=== PATIENT | male | born 1990 | race African-American/Black ===

== ENCOUNTER 2019-11-17 18:16 | Emergency (ER) | payer SELFPAY ==
--- OUTSIDE RECORDS SUMMARY | 2019-11-17 18:17 | XMS REPORT ---
:1990 Author Organization [facility] t Address [address] [place] [address] Care Team Providers Name Role Phone DR BRANDO Attending Clinician Unavailable DR DESEAN Attending Clinician Unavailable DR BRANDO Admitting Clinician Unavailable DESEAN, Admitting Clinician Unavailable Problems This patient has no known problems. Allergies, Adverse Reactions, Alerts This patient has no known allergies or adverse reactions. Medications This patient has no known medications. Procedures This patient has no known procedures. Encounters Start End Encounter Admission Attending Care Care Encounter Source Date/Time Date/Time Type Type Clinicians Facility Department ID 2019-08-04 2019-08-04 Emergency E BRANDO [facility] [id number] 22:01:00 23:42:00 [facility] 2019-08-01 2019-08-01 Emergency E MICHAELS, [facility] [id number] 21:00:00 21:43:00 [facility] 2018-10-23 2018-10-23 Emergency E DESEANDAYA [facility] [id number] [address] 14:39:00 15:28:00 [facility] Results Test Description Test Time Test Comments Results Result [facility] e Comments CT HEAD W/O 2018-10-23 CT brain without CONTRAST 15:22:04 contrast.Location code: [id number] HISTORY: Left Facial Palsy COMPARISON: None.TECHNIQUE: Routine unenhanced axial imaging of the brain was performed. Oneor more of the following dose reduction techniques were used: Automatedexposure control, adjustment of the mA and or KV according to patient size,and/or utilization of iterative reconstruction technique. DLP: 800 mGy-cm. FINDINGS: There is no acute intracranial hemorrhage or extra-axial collection.There is no hydrocephalus, midline shift, or space occupying mass. Coto-whitematter differentiation is well preserved with no definite CT evidence of anacute infarct. Posterior fossa and CP angles are normal.The cranial vault and skull base are intact. The paranasal sinuses and mastoidair cells are pneumatized and well aerated. IMPRESSION: No acute intracranial abnormality.
--- NOTE | 2019-11-17 19:48 | ER ---
Nurse's Notes [facility] Name: Romeo Lam Age: 29 yrs Sex: Male : 1990 Arrival Date: 11/17/2019 Time: 18:18 Bed 11 Private MD: Diagnosis: Pain in left hand-thumb Presentation: 11/16 18:32 Chief complaint: Patient states: "I hurt my left thumb with a metal pipe at work". pt aa5 c/o pain to left thumb. Coronavirus screen: Proceed with normal triage. Patient denies a cough. Patient denies shortness of breath or difficulty breathing. Patient denies measured and/or subjective temperature greater than 100.4F prior to today's visit. Patient denies travel on a cruise ship or to a country the [facility] currently lists as an affected area. Patient denies contact with known and/or suspected case of COVID-19. Ebola Screen: Patient negative for fever greater than or equal to 101.5 degrees Fahrenheit, and additional compatible Ebola Virus Disease symptoms. Initial Sepsis Screen: Does the patient meet any 2 criteria? No. Patient's initial sepsis screen is negative. Does the patient have a suspected source of infection? No. Patient's initial sepsis screen is negative. Risk Assessment: Do you want to hurt yourself or someone else? Patient reports no desire to harm self or others. Onset of symptoms was November 17, 2019. 18:32 Acuity: JOSE 4 aa5 18:32 Method Of Arrival: Ambulatory aa5 Triage Assessment: 19:15 General: Appears comfortable, Behavior is calm, cooperative. Injury Description: jammed rv finger between metal bars. Historical: - Allergies: 18:34 No Known Allergies; aa5 - PMHx: 18:34 None; aa5 - PSHx: 18:34 None; aa5 - Immunization history:: Adult Immunizations unknown. - Social history:: Smoking status: Patient reports the use of cigarette tobacco products, denies chronic smoking, but will smoke occasionally. Screenin:15 Abuse screen: Denies threats or abuse. Denies injuries from another. Nutritional rv screening: No deficits noted. Tuberculosis screening: No symptoms or risk factors identified. Fall Risk None identified. Assessment: 19:14 General: Appears in no apparent distress. comfortable, Behavior is calm, cooperative. rv Pain: Denies pain. Neuro: Level of Consciousness is awake, alert, obeys commands, Oriented to person, place, time, situation. Cardiovascular: Patient's skin is warm and dry. Respiratory: Airway is patent. Derm: Skin is intact. Musculoskeletal: Swelling absent. 19:54 Reassessment: Patient and/or family updated on plan of care and expected duration. Pain ea level reassessed. Patient is alert, oriented x 3, equal unlabored respirations, skin warm/dry/pink. Discharge instruction given to patient, verbalized the understanding of instruction. Pt left ED ambulatory tolerating well. Patient states feeling better. Vital Signs: 18:32 BP 131 / 82; Pulse 85; Resp 16 S; Temp 98.3(TE); Pulse Ox 100% on R/A; Weight 68.04 kg aa5 (R); Height 5 ft. 8 in. (172.72 cm) (R); Pain 1/10; 18:32 Body Mass Index 22.81 (68.04 kg, 172.72 cm) aa5 ED Course: 18:18 Patient arrived in ED. as 18:32 Arm band placed on. aa5 18:33 Triage completed. aa5 18:36 [facility]C [facility] kb 18:36 Markus Ibarra MD is Attending Physician. kb 19:01 Dean Pena, CELINA is Primary Nurse. rv 19:16 Patient has correct armband on for positive identification. Pulse ox on. NIBP on. rv 19:45 Hand Left 3 View XRAY In Process Unspecified. EDMS 19:55 No provider procedures requiring assistance completed. Patient did not have IV access ea during this emergency room visit. Administered Medications: No medications were administered Outcome: 19:47 Discharge ordered by MD. kb 19:55 Discharged to home ambulatory. ea 19:55 Condition: stable 19:55 Instructed on discharge instructions, follow up and referral plans. Demonstrated understanding of instructions, follow-up care. 19:56 Patient left the ED. ea Signatures: Dispatcher [employer] EDMS Eula Posada FNP-C FNP-Amada De Los Santos Audri, RN RN aa5 Lara Vargas RN RN ea Dean Pena, CELINA RN rv Corrections: (The following items were deleted from the chart) 19:16 19:15 Injury Description: jam finger between metal bars rv rv 19:55 19:54 Reassessment: Patient and/or family updated on plan of care and expected ea duration. Pain level reassessed. Patient is alert, oriented x 3, equal unlabored respirations, skin warm/dry/pink. Patient states feeling better. ea
--- NOTE | 2019-11-17 19:49 | EDPHYS ---
Physician Documentation [facility] Name: Romeo Lam Age: 29 yrs Sex: Male : 1990 Arrival Date: 11/17/2019 Time: 18:18 Bed 11 Private MD: ED Physician Markus Ibarra HPI: 11/16 19:22 This 29 yrs old Black Male presents to ER via Ambulatory with complaints of Thumb kb Injury. 19:22 The patient or guardian reports decreased range of motion, injury, pain, tenderness. kb The complaints affect the left thumb. Context: The problem was sustained at work, resulted from a direct blow. Onset: The symptoms/episode began/occurred today. Modifying factors: The symptoms are alleviated by nothing, the symptoms are aggravated by movement. Associated signs and symptoms: The patient has no apparent associated signs or symptoms. Severity of symptoms: At their worst the symptoms were mild, in the emergency department the symptoms are unchanged. The patient has not experienced similar symptoms in the past. The patient has not recently seen a physician. Pt states a piece of metal hit his thumb today and he just wanted to make sure it wasn't broken. Historical: - Allergies: 18:34 No Known Allergies; aa5 - PMHx: 18:34 None; aa5 - PSHx: 18:34 None; aa5 - Immunization history:: Adult Immunizations unknown. - Social history:: Smoking status: Patient reports the use of cigarette tobacco products, denies chronic smoking, but will smoke occasionally. ROS: 19:20 Constitutional: Negative for fever, chills, and weight loss, Neck: Negative for injury, kb pain, and swelling, Cardiovascular: Negative for chest pain, palpitations, and edema, Respiratory: Negative for shortness of breath, cough, wheezing, and pleuritic chest pain, Abdomen/GI: Negative for abdominal pain, nausea, vomiting, diarrhea, and constipation, Back: Negative for injury and pain, Skin: Negative for injury, rash, and discoloration, Neuro: Negative for headache, weakness, numbness, tingling, and seizure. 19:20 MS/extremity: Positive for injury or acute deformity, decreased range of motion, pain, of the left thumb. Exam: 19:20 Constitutional: This is a well developed, well nourished patient who is awake, alert, kb and in no acute distress. Head/Face: Normocephalic, atraumatic. Chest/axilla: Normal chest wall appearance and motion. Nontender with no deformity. No lesions are appreciated. Cardiovascular: Regular rate and rhythm with a normal S1 and S2. No gallops, murmurs, or rubs. Normal PMI, no JVD. No pulse deficits. Respiratory: Lungs have equal breath sounds bilaterally, clear to auscultation and percussion. No rales, rhonchi or wheezes noted. No increased work of breathing, no retractions or nasal flaring. Abdomen/GI: Soft, non-tender, with normal bowel sounds. No distension or tympany. No guarding or rebound. No evidence of tenderness throughout. Skin: Warm, dry with normal turgor. Normal color with no rashes, no lesions, and no evidence of cellulitis. Neuro: Awake and alert, GCS 15, oriented to person, place, time, and situation. Cranial nerves II-XII grossly intact. Motor strength 5/5 in all extremities. Sensory grossly intact. Cerebellar exam normal. Normal gait. 19:20 Musculoskeletal/extremity: Extremities: grossly normal except: noted in the left thumb: decreased ROM, pain, swelling, ROM: limited active range of motion due to pain, in the left thumb, Circulation is intact in all extremities. Sensation intact. Vital Signs: 18:32 BP 131 / 82; Pulse 85; Resp 16 S; Temp 98.3(TE); Pulse Ox 100% on R/A; Weight 68.04 kg aa5 (R); Height 5 ft. 8 in. (172.72 cm) (R); Pain 1/10; 18:32 Body Mass Index 22.81 (68.04 kg, 172.72 cm) aa5 MDM: 19:01 Patient medically screened. kb 19:20 Data reviewed: vital signs, nurses notes. Data interpreted: Pulse oximetry: on room air kb is 100 %. Interpretation: normal. Counseling: I had a detailed discussion with the patient and/or guardian regarding: the historical points, exam findings, and any diagnostic results supporting the discharge/admit diagnosis, radiology results, the need for outpatient follow up, a family practitioner, to return to the emergency department if symptoms worsen or persist or if there are any questions or concerns that arise at home. 11/16 18:35 Order name: Hand Left 3 View XRAY aa5 Administered Medications: No medications were administered Disposition: 11/17 07:19 Co-signature as Attending Physician, Markus Ibarra MD. rn Disposition: 11/17/19 19:47 Discharged to Home. Impression: Pain in left hand - thumb. - Condition is Stable. - Discharge Instructions: Musculoskeletal Pain. - Medication Reconciliation Form, Thank You Letter, Antibiotic Education, Prescription Opioid Use form. - Follow up: Emergency Department; When: As needed; Reason: Worsening of condition. Follow up: Private Physician; When: 2 - 3 days; Reason: Recheck today's complaints, Continuance of care, Re-evaluation by your physician. Signatures: Dispatcher [employer] EDMS Eula Posada, WATER COMMISSIONER-C WATER COMMISSIONER-Ckb Markus Ibarra MD MD rn Calderon, Audri, RN RN aa5 Lara Vargas RN RN ea Corrections: (The following items were deleted from the chart) 11/16 19:56 19:47 11/17/2019 19:47 Discharged to Home. Impression: Pain in left hand - thumb. ea Condition is Stable. Forms are Medication Reconciliation Form, Thank You Letter, Antibiotic Education, Prescription Opioid Use. Follow up: Emergency Department; When: As needed; Reason: Worsening of condition. Follow up: Private Physician; When: 2 - 3 days; Reason: Recheck today's complaints, Continuance of care, Re-evaluation by your physician. kb
--- NOTE | 2019-11-17 20:06 | RAD REPORT ---
EXAM DESCRIPTION: RAD -Hand Left 3 View - 11/17/2019 7:40 pm CLINICAL HISTORY: Left hand pain status post injury FINDINGS: No fracture or dislocation is seen.
== END 2019-11-17 19:56 | disposition home or self-care (01) ==
LOC: ER 18:16
DX: M79.642 Pain in left hand (principal); Z72.0 Tobacco use
CPT/HCPCS: 99283

== ENCOUNTER 2021-09-01 07:11 | Emergency (ER) | payer SELFPAY ==
--- OUTSIDE RECORDS SUMMARY | 2021-09-01 07:14 | XMS REPORT | Continuity of Care Document ---
:1990 Author Organization [facility] t Address [address] [place] [address] Care Team Providers Name Role Phone DR BRANDO Attending Clinician Unavailable DR DESEAN Attending Clinician Unavailable DR BRANDO Admitting Clinician Unavailable DESEAN, Admitting Clinician Unavailable Problems This patient has no known problems. Allergies, Adverse Reactions, Alerts Allergy Allergy Status Severity Reaction(s) Onset Inactive Treating Comm ents Source Name Type Date Date Clinician No Known DA Active [facility] Allergie [place] s Medications This patient has no known medications. Vital Signs Vital Name Observation Time Observation Value Comments Source Height 2019-08-04 22:01:00 172.72 CM Weight 2019-08-04 22:01:00 68.03 KG Height 2019-08-01 21:18:00 172.72 CM Weight 2019-08-01 21:18:00 68.03 KG Procedures This patient has no known procedures. Encounters Start End Encounter Admission Attending Care Care Encounter Source Date/Time Date/Time Type Type Clinicians Facility Department ID 2019-08-04 2019-08-04 Emergency E BRANDO [facility] [id number] 22:01:00 23:42:00 [facility] 2019-08-01 2019-08-01 Emergency E BRANDO [facility] [id number] 21:00:00 21:43:00 [facility] 2018-10-23 2018-10-23 Emergency E DAYA [facility] [id number] [address] 14:39:00 15:28:00 [facility] Results Test Description Test Time Test Comments Results Result [facility] e Comments CT HEAD W/O 2018-10-23 CT brain without CONTRAST 15:22:04 contrast.Location code: [id number] HISTORY: Left Facial Palsy COMPARISON: None.TECHNIQUE: Routine [...]
--- NOTE | 2021-09-01 08:16 | ER ---
Nurse's Notes [facility] Name: Romeo Lam Age: 31 yrs Sex: Male : 1990 Arrival Date: 09/01/2021 Time: 07:14 Bed 8 Private MD: Diagnosis: Pain in left forearm Presentation: 09/01 07:37 Chief complaint: Patient states: L elbow pain started night. Radiating down L ll1 arm now. No trauma, just repetitive use at work. Coronavirus screen: Vaccine status: Patient reports receiving the 2nd dose of the covid vaccine. Client denies travel out of the [place] in the last 14 days. At this time, the client does not indicate any symptoms associated with coronavirus-19. Ebola Screen: Patient denies travel to an Ebola-affected area in the 21 days before illness onset. Initial Sepsis Screen: Does the patient meet any 2 criteria? No. Patient's initial sepsis screen is negative. Does the patient have a suspected source of infection? No. Patient's initial sepsis screen is negative. Risk Assessment: Do you want to hurt yourself or someone else? Patient reports no desire to harm self or others. Onset of symptoms was August 26, 2021. 07:37 Method Of Arrival: Ambulatory ll1 07:37 Acuity: JOSE 4 ll1 Triage Assessment: 07:39 General: Appears uncomfortable, Behavior is calm, cooperative, appropriate for age. ll1 Pain: Complains of pain in left arm Quality of pain is described as aching, Aggravated by increased activity. Musculoskeletal: Circulation, motion, and sensation intact. Capillary refill < 3 seconds, Range of motion: intact in all extremities, Reports pain in left arm. Historical: - Allergies: 07:36 No Known Allergies; ll1 - PMHx: 07:36 None; ll1 - PSHx: 07:36 None; ll1 - Immunization history:: Client reports receiving the 2nd dose of the Covid vaccine. - Social history:: Smoking status: Patient reports the use of cigarette tobacco products, denies chronic smoking, but will smoke occasionally. - Family history:: not pertinent. Screenin:39 Abuse screen: Denies threats or abuse. Nutritional screening: No deficits noted. ll1 Tuberculosis screening: No symptoms or risk factors identified. Fall Risk Total Lino Fall Scale indicates No Risk (0-24 pts). Assessment: 08:25 Reassessment: Patient appears in no apparent distress at this time. No changes from 1 previously documented assessment. Patient and/or family updated on plan of care and expected duration. Pain level reassessed. Patient is alert, oriented x 3, equal unlabored respirations, skin warm/dry/pink. Vital Signs: 07:37 BP 127 / 93; Pulse 60; Resp 16; Temp 98.0; Pulse Ox 100% ; Weight 70.31 kg; Height 5 ll1 ft. 9 in. (175.26 cm); Pain 2/10; 07:37 Body Mass Index 22.89 (70.31 kg, 175.26 cm) 1 ED Course: 07:14 Patient arrived in ED. ds1 07:19 Rachael Lara MD is Attending Physician. ma2 07:35 French Kent, CELINA is Primary Nurse. ll1 07:35 Arm band placed on Patient placed in an exam room, on a stretcher. 1 07:39 Triage completed. 1 07:39 Patient has correct armband on for positive identification. Bed in low position. Call 1 light in reach. Side rails up X 1. Cardiac monitoring not applicable on this patient. 08:28 No provider procedures requiring assistance completed. Patient did not have IV access ll1 during this emergency room visit. Administered Medications: No medications were administered Outcome: 08:15 Discharge ordered by . [facility] 08:28 Patient left the ED. 1 08:28 Discharged to home ambulatory. 1 08:28 Condition: stable 08:28 Discharge instructions given to patient, Instructed on discharge instructions, follow up and referral plans. no drinking with medication, no driving heavy equipment, medication usage, Demonstrated understanding of instructions, follow-up care, medications, Prescriptions given X 1. Signatures: Rosemary Ponce ds1 Rachael Lara MD MD ma2 Lewis, Lynsay, RN RN 1
--- NOTE | 2021-09-01 08:16 | EDPHYS ---
Physician Documentation [facility] Name: Romeo Lam Age: 31 yrs Sex: Male : 1990 Arrival Date: 09/01/2021 Time: 07:14 Bed 8 Private MD: ED Physician Rachael Lara HPI: 09/01 08:14 This 31 yrs old Black Male presents to ER via Ambulatory with complaints of Arm Pain. ma2 08:14 Left forearm pain 1 day constant mild worse with movement, started gradually after he ma2 lifted heavy stuff.. Historical: - Allergies: 07:36 No Known Allergies; ll1 - PMHx: 07:36 None; ll1 - PSHx: 07:36 None; ll1 - Immunization history:: Client reports receiving the 2nd dose of the Covid vaccine. - Social history:: Smoking status: Patient reports the use of cigarette tobacco products, denies chronic smoking, but will smoke occasionally. - Family history:: not pertinent. ROS: 08:14 Constitutional: Negative for fever, chills, and weight loss. ma2 08:14 All other systems are negative. Exam: 08:14 Constitutional: This is a well developed, well nourished patient who is awake, alert, ma2 and in no acute distress. Neck: Trachea midline, no thyromegaly or masses palpated, and no cervical lymphadenopathy. Supple, full range of motion without nuchal rigidity, or vertebral point tenderness. No Meningismus. Chest/axilla: Normal chest wall appearance and motion. Nontender with no deformity. No lesions are appreciated. Cardiovascular: Regular rate and rhythm with a normal S1 and S2. No gallops, murmurs, or rubs. Normal PMI, no JVD. No pulse deficits. Respiratory: Lungs have equal breath sounds bilaterally, clear to auscultation and percussion. No rales, rhonchi or wheezes noted. No increased work of breathing, no retractions or nasal flaring. Abdomen/GI: Soft, non-tender, with normal bowel sounds. No distension or tympany. No guarding or rebound. No evidence of tenderness throughout. Skin: Warm, dry with normal turgor. Normal color with no rashes, no lesions, and no evidence of cellulitis. MS/ Extremity: Pulses equal, no cyanosis. Neurovascular intact. Full, normal range of motion. Neuro: Awake and alert, GCS 15, oriented to person, place, time, and situation. Cranial nerves II-XII grossly intact. Motor strength 5/5 in all extremities. Sensory grossly intact. Cerebellar exam normal. Normal gait. Vital Signs: 07:37 BP 127 / 93; Pulse 60; Resp 16; Temp 98.0; Pulse Ox 100% ; Weight 70.31 kg; Height 5 ll1 ft. 9 in. (175.26 cm); Pain 2/10; 07:37 Body Mass Index 22.89 (70.31 kg, 175.26 cm) ll1 MDM: 07:31 Patient medically screened. ma2 08:14 Differential diagnosis: dislocation, contusion, abrasion, tendonitis. Differential ma2 diagnosis:. Data reviewed: vital signs, nurses notes. Counseling: I had a detailed discussion with the patient and/or guardian regarding:. Administered Medications: No medications were administered Disposition Summary: 09/01/21 08:15 Discharge Ordered Location: Home ma2 Condition: Stable ma2 Diagnosis - Pain in left forearm ma2 Followup: ma2 - With: Private Physician - When: Tomorrow - Reason: Continuance of care Discharge Instructions: - Discharge Summary Sheet ma2 - Musculoskeletal Pain ma2 - Heat Therapy ma2 Forms: - Medication Reconciliation Form ma2 - Thank You Letter ma2 - Antibiotic Education ma2 - Prescription Opioid Use ma2 - Work release form 1 Prescriptions: - Cyclobenzaprine 5 mg Oral Tablet - take 1 tablet by ORAL route 3 times per day As needed; 15 tablet; Refills: 0, ma2 Product Selection Permitted Signatures: Rachael Lara MD MD ma2 French Kent RN RN ll1
[2021-09-01 08:34] VITALS: BP 127/93; TEMP 98; O2SAT 100
== END 2021-09-01 08:28 | disposition home or self-care (01) ==
LOC: ER 07:11
DX: M79.632 Pain in left forearm (principal); F17.210 Nicotine dependence, cigarettes, uncomplicated
CPT/HCPCS: 99282

== ENCOUNTER 2021-11-17 11:30 | Emergency (ER) | payer SELFPAY ==
--- OUTSIDE RECORDS SUMMARY | 2021-11-17 11:33 | XMS REPORT | Continuity of Care Document ---
:1990 Author Organization [facility] t Address [address] [place] [address] Care Team Providers Name Role Phone Letty BRITT Primary Care Physician Unavailable Visit, Nurse Attending Clinician Unavailable Letty Patel Attending Clinician Letty BRITT Attending Clinician Unavailable DR BRANDO Attending Clinician Unavailable DESEAN, Attending Clinician Unavailable DR BRANDO Admitting Clinician Unavailable DR DESEAN Admitting Clinician Unavailable Payers Payer Name Policy Type Policy Number Effective Date Expiration Date S ource Problems Condition Condition Condition Status Onset Resolution Last Treating Co mments Source Name Details Category Date Date Treatment Clinician Date No known No known Disease Unive rs active active ity of problems problems [facility] Allergies, Adverse Reactions, Alerts Allergy Allergy Status Severity Reaction(s) Onset Inactive Treating Comm ents Source Name Type Date Date Clinician NO KNOWN Drug Active Univers ALLERGIE Class ity of S [facility] No Known DA Active [facility] s Social History Social Habit Start Date Stop Date Quantity Comments Source Exposure to Not sure [facility] SARS-CoV-2 (event) Medica l Branch Sex Assigned At [birth year] [facility] 00:00:00 00:00:00 Medical Branch Smoking Status Start Date Stop Date Source Unknown if ever smoked [facility] Medications Ordered Filled Start Stop Current Ordering Indication Dosage Frequency Signature Comments Components Source Medication Medication Date Date Medication? Clinician (SIG) Name Name penicillin 2021- Yes [id number] 2.410 U nivers g 10-02 ity of benzathine 14:00: 13:59 [place] (BICILLIN 00 :00 Medical L-A) Branch injection 2.4 Million Units penicillin 2021- Yes [id number] 2.410 2.4 U nivers g 10-02-23 Million ity of benzathine 14:00[place] 13[place] Intramuscu Medi evelyn L-A) lar, Branch injection QWEEKLY, 3 2.4 Million doses, Units First dose on 10/02/21 at 0900, Last dose on 10/16/21 at 0900, NICK
Re ason for Anti-Infec tive: Empiric Therapy for Suspected Infection& lt;br>Empi akilah Therapy Site: Other
O ther site: genitourin elan
Dur ation of therapy: 72 hours penicillin 2021- Yes [id number] 2.410 U nivers g 10-0223 ity of benzathine 14:00: 13:59 [place] (BICILLIN 00 :00 Medical L-A) Branch injection 2.4 Million Units penicillin 2021- Yes [id number] 2.410 2.4 U nivers g 10-02-23 Million ity of benzathine 14:00: 13:59 [place] Intramuscu Medi evelyn L-A) lar, Branch injection QWEEKLY, 3 2.4 Million doses, Units First dose on 10/02/21 at 0900, Last dose on 10/16/21 at 0900, NICK
Re ason for Anti-Infec tive: Empiric Therapy for Suspected Infection& lt;br>Empi [place] Therapy Site: Other
O ther site: genitourin elan
Dur ation of therapy: 72 hours penicillin 2021- No [id number] 2.410 U nivers g 10-02 04-15 ity of benzathine 14:00: 14:08 [place] (BICILLIN 00 :00 Medical L-A) Branch injection 2.4 Million Units penicillin 2021- No [id number] 2.410 2.4 U nivers g 10-02-15 Million ity of benzathine 14:00: 14:08 [place] Intramuscu Medi evelyn L-A) lar, Branch injection QWEEKLY, 3 2.4 Million doses, Units First dose on 10/02/21 at 0900, Last dose on 10/16/21 at 0900, NICK
Re ason for Anti-Infec tive: Empiric Therapy for Suspected Infection& lt;br>Empi [place]il[place] Therapy Site: Other
O ther site: genitourin elan
Dur ation of therapy: 72 hours metroNIDAZO 0 2021- Yes [id number] 2000mg Take 4 Univers LE 500 mg 10-01 tablets by [place]y of tablet 00:00: 04:59 [place] now for 1 Medical dose. [place] Vital Signs Vital Name Observation Time Observation Value Comments Source Systolic blood 2021-10-15 13:49:00 131 mm[Hg] Univer sity [facility] Diastolic blood 2021-10-15 13:49:00 91 mm[facility]Hg[facility] 2021-10-15 13:46:00 61 /min [facility] Body temperature 2021-10-15 13:46:[address] [facility] Respiratory rate 2021-10-15 13:46:00 18 /min [facility] Body height 2021-10-15 13:46:00 175.3 cm [facility] Body weight 2021-10-15 13:46:00 70.126 kg [facility] BMI 2021-10-15 13:46:00 22.83 kg/m2 [facility] Systolic blood 2021-10-08 14:49:00 130 mm[Hg] Univer sity [facility] Diastolic blood 2021-10-08 14:49:00 73 mm[Hg] [facility] 2021-10-08 14:49:00 67 /min [facility] Body temperature 2021-10-08 14:49:[address] [facility] Respiratory rate 2021-10-08 14:49:00 16 /min [facility] Body height 2021-10-08 14:49:00 175.3 cm Universi ty [facility] Body weight 2021-10-08 14:49:00 71.124 kg Universi [facility] BMI 2021-10-08 14:49:00 23.16 kg/m2 Universi [facility] Systolic blood 2021-10-01 16:18:00 140 mm[Hg] Univer sity of pressure [facility] Diastolic blood 2021-10-01 16:18:00 100 mm[Hg] Unive rsity of [facility] Heart rate 2021-10-01 15:42:00 84 /min [facility] Body temperature 2021-10-01 15:42:00 36.44 Cathy [facility] Res[facility] rate 2021-10-01 15:42:00 18 /min [facility] Body height 2021-10-01 15:42:00 175.3 cm Universi [facility] Body weight 2021-10-01 15:42:00 70.478 kg [facility] BMI 2021-10-01 15:42:00 22.94 kg/m2 [facility] Height 2019-08-04 22:01:00 172.72 CM Weight 2019-08-04 22:01:00 68.03 KG Height 2019-08-01 21:18:00 172.72 CM Weight 2019-08-01 21:18:00 68.03 KG Procedures This patient has no known procedures. Encounters Start End Encounter Admission Attending Care Care Encounter Source Date/Time Date/Time Type Type Clinicians Facility Department ID 2022-01-14 2022-01-14 Outpatient R [facility] [id number] Univers 08:30:00 08:30:00 ity [facility] 2021-10-15 2021-10-15 Nurse Visit, GonzalezRmchp Nurse [facility] [id number] Univers 09:00:00 09:15:00 Visit Shira Brtit CHIEF DOG LICENSE INSPECTOR [id number] Geovanni as MATERNAL [id number] Med ical & CHILD [address] [place] [address] 2021-10-15 2021-10-15 Outpatient R [facility] [id number] Univers 09:00:00 09:00:00 [id number] ity [facility] 2021-10-15 2021-10-15 Outpatient R HANSEL [facility] [id number] [facility] 09:00:00 09:00:00 SHIRAJOHN francis [facility] 2021-10-08 2021-10-08 Nurse Visit, Ej-Rmchp Nurse [facility] [id number] [facility] 09:00:00 09:15:00 Visit Shira Britt CHIEF DOG LICENSE INSPECTOR [id number] ity of [facility] [id number] Geovanni as MATERNAL [id number] [facility] ical & CHILD [address] [place] [address] 2021-10-08 2021-10-08 Outpatient R HANSEL [facility] [id number] [facility] 09:00:00 09:00:00 SHIRA francis [facility] 2021-10-01 2021-10-01 Office Hansel, [facility] [id number] [facility] 09:45:00 11:23:00 Visit Shira Saenz CHIEF DOG LICENSE INSPECTOR [id number] ity [facility] [id number] Geovanni as MATERNAL [id number] [facility] & [address] 2019-08-04 2019-08-04 Emergency E BRANDO [facility] [id number] [facility] 22:01:00 [facility]:42:[facility] 2019-08-01 2019-08-01 Emergency E BRANDO [facility] [id number] [facility] 21:00:00 21:43:00 [facility] 2018-10-23 2018-10-23 Emergency E ANTONDAYA Garcia [facility] [id number] [facility] 14:39:00 15:28:00 [facility] Results Test Description Test Time Test Comments Results Result [facility] e Comments CT HEAD W/O 2018-10-23 CT brain without CONTRAST 15:22:04 contrast.Location code: [id number] HISTORY: Left Facial Palsy COMPARISON: None.TECHNIQUE: Routine [...]
--- NOTE | 2021-11-17 13:43 | RAD REPORT ---
EXAM DESCRIPTION: RAD - Shoulder Left 2 View - 11/17/2021 1:29 pm CLINICAL HISTORY: PAIN COMPARISON: No comparisons FINDINGS/IMPRESSION: No acute fracture. No malalignment. No significant focal degenerative changes.
--- NOTE | 2021-11-17 15:36 | EDPHYS ---
Physician Documentation [facility] Name: Romeo Lam Age: 31 yrs Sex: Male : 1990 Arrival Date: 11/17/2021 Time: 11:32 Bed DIS3 Private MD: ED Physician Kye Arrington HPI: 11/17 12:50 This 31 yrs old Black Male presents to ER via Unassigned with complaints of Shoulder cp Pain - LEFT. 12:50 The patient or guardian complains of pain, that is acute. left shoulder. Context: cp resulted from an unknown reason, The patient reports no decreased range of motion. The patient reports no obvious deformity. Onset: The symptoms/episode began/occurred last month. Associated signs and symptoms: Pertinent negatives: chest pain, neck pain, Numbness in left hand and left arm shortness of breath, Weakness in left hand and left arm. Severity of symptoms: in the emergency department the symptoms have improved, moderately. Patient reports pain worse after working. Job requires frequent, heavy, and overhead lifting. Historical: - Allergies: 13:00 No Known Allergies; ap3 - Home Meds: 13:00 None [Active]; ap3 - PMHx: 13:00 None; ap3 - Immunization history:: Adult Immunizations up to date, Client reports receiving the 2nd dose of the Covid vaccine. - Social history:: Smoking status: Patient reports the use of cigarette tobacco products, denies chronic smoking, but will smoke occasionally, Patient uses alcohol, occasionally. street drugs, marijuana. ROS: 13:00 MS/extremity: Positive for pain, tenderness, of the left shoulder. cp 13:00 Constitutional: Negative for body aches, chills, fever, poor PO intake. cp 13:00 Abdomen/GI: Negative for abdominal pain, nausea, vomiting, and diarrhea. Exam: 13:05 Constitutional: The patient appears in no acute distress, alert, awake, comfortable, cp non-toxic, well developed, well nourished. 13:05 Head/Face: Normocephalic, atraumatic. cp 13:05 Neck: C-spine: vertebral tenderness, is not appreciated, crepitus, is not appreciated, ROM/movement: is normal, is supple, without pain, no range of motions limitations. 13:05 Chest/axilla: Inspection: normal, Palpation: is normal, no crepitus, no tenderness. 13:05 Cardiovascular: Rate: normal, Rhythm: regular, Pulses: Pulses are 2+ in left radial artery. 13:05 Respiratory: the patient does not display signs of respiratory distress, Respirations: normal, no use of accessory muscles, no retractions, labored breathing, is not present, Breath sounds: are clear throughout, no decreased breath sounds, no stridor, no wheezing. 13:05 Back: pain, is absent, ROM is normal. 13:05 Musculoskeletal/extremity: Extremities: grossly normal except: noted in the left shoulder: pain, There is no evidence of decreased ROM, deformity, swelling, tenderness, ROM: full passive range of motion, in the left shoulder, the left hand and left arm Sensation intact. Vital Signs: 12:58 BP 165 / 92; Pulse 65; Resp 17; Temp 97.9; Pulse Ox 100% ; Weight 70.76 kg; Height 5 ap3 ft. 8 in. (172.72 cm); Pain 10/10; 15:45 BP 136 / 80; Pulse 67; Resp 18; Pulse Ox 100% ; Pain 3/10; jh6 12:58 Body Mass Index 23.72 (70.76 kg, 172.72 cm) ap3 MDM: 15:34 Patient medically screened. cp 15:34 Differential diagnosis: Anterior dislocation with fracture, Anterior dislocation cp without fracture, Posterior dislocation with fracture, Posterior dislocation without fracture, humeral head fracture, glenoid fracture, tendonitis. 15:34 Data reviewed: vital signs, nurses notes, radiologic studies, plain films. Test cp interpretation: by ED physician or midlevel provider: plain radiologic studies. Counseling: I had a detailed discussion with the patient and/or guardian regarding: the historical points, exam findings, and any diagnostic results supporting the discharge/admit diagnosis, radiology results, the need for outpatient follow up, a orthopedic surgeon, to return to the emergency department if symptoms worsen or persist or if there are any questions or concerns that arise at home. 11/17 12:51 Order name: XRAY Shoulder LEFT 2 view; Complete Time: 15:34 cp 11/17 15:34 Interpretation: Report reviewed. cp Administered Medications: No medications were administered Disposition: 16:10 Co-signature as Attending Physician, Kye Arrington DO I was immediately available on-site ms3 in the Emergency Department for consultation in the care of the patient.. Disposition Summary: 11/17/21 15:36 Discharge Ordered Location: Home cp Problem: new cp Symptoms: have improved cp Condition: Stable cp Diagnosis - Pain in left shoulder cp Followup: cp - With: Aamir Rios MD - When: 2 - 3 days - Reason: left shoulder pain Discharge Instructions: - Discharge Summary Sheet cp - Shoulder Pain cp - Shoulder Range of Motion Exercises cp - Form - Excuse from Work, School, or Physical Activity cp Forms: - Medication Reconciliation Form cp - Thank You Letter cp - Antibiotic Education cp - Prescription Opioid Use cp - Work release form jh6 Prescriptions: - Diclofenac Sodium 75 mg Oral Tablet Sustained Release - take 1 tablet by ORAL route 2 times per day; 30 tablet; Refills: 0, Product cp Selection Permitted Signatures: Dispatcher [employer] EDMS Kadeem De La Fuente PA PA cp Prokisch, Amanda, RN RN ap3 Kye Arrington DO DO ms3
--- NOTE | 2021-11-17 15:36 | ER ---
Nurse's Notes [facility] Name: Romeo Lam Age: 31 yrs Sex: Male : 1990 Arrival Date: 11/17/2021 Time: 11:32 Bed DIS3 Private MD: Diagnosis: Pain in left shoulder Presentation: 11/17 12:58 Chief complaint: Patient states: that approx one month ago, he was seen here for ap3 feeling like he strained his left forearm. Patient states he had some relief for approx a week or two. Now patient states that his left shoulder now hurts, especially when he lifts something. Coronavirus screen: At this time, the client does not indicate any symptoms associated with coronavirus-19. Ebola Screen: No symptoms or risks identified at this time. Initial Sepsis Screen: Does the patient meet any 2 criteria? No. Patient's initial sepsis screen is negative. Does the patient have a suspected source of infection? No. Patient's initial sepsis screen is negative. Risk Assessment: Do you want to hurt yourself or someone else? Patient reports no desire to harm self or others. Onset of symptoms was October 2021. 12:58 Method Of Arrival: Ambulatory ap3 12:58 Acuity: JOSE 4 ap3 Triage Assessment: 13:01 General: Appears in no apparent distress. Behavior is calm, cooperative. Pain: ap3 Complains of pain in posterior aspect of left shoulder Pain currently is 10 out of 10 on a pain scale. at worst was 10 out of 10 on a pain scale. Is intermittent. EENT: Neuro: Level of Consciousness is awake, alert, obeys commands, Oriented to person, place, time, situation. Cardiovascular: Patient's skin is warm and dry. Respiratory: Airway is patent. Historical: - Allergies: 13:00 No Known Allergies; ap3 - Home Meds: 13:00 None [Active]; ap3 - PMHx: 13:00 None; ap3 - Immunization history:: Adult Immunizations up to date, Client reports receiving the 2nd dose of the Covid vaccine. - Social history:: Smoking status: Patient reports the use of cigarette tobacco products, denies chronic smoking, but will smoke occasionally, Patient uses alcohol, occasionally. street drugs, marijuana. Screenin:43 Abuse screen: Denies threats or abuse. Nutritional screening: No deficits noted. 6 Tuberculosis screening: No symptoms or risk factors identified. Fall Risk None identified. Assessment: 15:44 Reassessment: pt d/c from [facility] and not assigned to rn. 6 Vital Signs: 12:58 BP 165 / 92; Pulse 65; Resp 17; Temp 97.9; Pulse Ox 100% ; Weight 70.76 kg; Height 5 ap3 ft. 8 in. (172.72 cm); Pain 10/10; 15:45 BP 136 / 80; Pulse 67; Resp 18; Pulse Ox 100% ; Pain 3/10; jh6 12:58 Body Mass Index 23.72 (70.76 kg, 172.72 cm) ap3 ED Course: 11:32 Patient arrived in ED. am2 11:48 Kadeem De La Fuente PA is PHCP. cp 11:48 Kye Arrington DO is Attending Physician. cp 13:00 Triage completed. ap3 13:31 XRAY Shoulder LEFT 2 view In Process Unspecified. EDMS 15:35 Aamir Rios MD is Referral Physician. cp 15:40 Doretha Wiley, RN is Primary Nurse. [facility] 15:43 Sling applied to left arm. 6 Administered Medications: No medications were administered Outcome: 15:36 Discharge ordered by MD. cp 15:43 Discharged to home ambulatory. jh6 15:43 Discharged to home ambulatory. 15:43 Condition: good 15:43 Discharge instructions given to patient. 15:47 Patient left the ED. [facility] Signatures: Dispatcher [employer] EDIL Kadeem De La Fuente PA PA cp Veronica Wells am2 Veronica Michelle RN RN ap3 Doretha Wiley, CELINA RN [facility]
[2021-11-17 15:53] VITALS: TEMP 97.9; O2SAT 100
[2021-11-17 15:54] VITALS: BP 136/80
== END 2021-11-17 15:47 | disposition home or self-care (01) ==
LOC: ER 11:30
DX: M25.512 Pain in left shoulder (principal); F17.210 Nicotine dependence, cigarettes, uncomplicated
CPT/HCPCS: 99283

== ENCOUNTER 2022-07-25 10:35 | Emergency (ER) | payer SELFPAY ==
--- OUTSIDE RECORDS SUMMARY | 2022-07-25 10:42 | XMS REPORT | Continuity of Care Document ---
:1990 Author Organization [facility] t Address [address] [place] [address] Care Team Providers Name Role Phone SHIRA BRITT Primary Care Physician Unavailable SHIRA BRITT Attending Clinician Unavailable Visit, Estela Nurse Attending Clinician Unavailable Shira Patel Attending Clinician [phone] Doctor Unassigned, [place] Attending Clinician Unavailable DR BHARATI MICHAELS Attending Clinician Unavailable ANTONDR DAYA Garcia Attending Clinician Unavailable DR BHARATI MICHAELS Admitting Clinician Unavailable DESEAN, DR STAPLETON Admitting Clinician Unavailable Payers Payer Name Policy Type Policy Number Effective Date Expiration Date Dimas acharya [employer] [id number] 2021 TATYANA 0-100% 00:00:00 Problems Condition Condition Condition Status Onset Resolution Last Treating Co mments Source Name Details Category Date Date Treatment Clinician Date No known No known Disease Unive rs active active ity of problems problems [facility] Allergies, Adverse Reactions, Alerts Allergy Allergy Status Severity Reaction(s) Onset Inactive Treating Comm ents Source Name Type Date Date Clinician NO KNOWN Drug Active Univers ALLERGIE Class ity of S [facility] No Known DA Active [facility] s Social History Social Habit Start Date Stop Date Quantity Comments Source Exposure to Not sure [facility] SARS-CoV-2 (event) Medica l Branch Sex Assigned At [birth year] [facility] 00:00:00 00:00:00 [facility] Smoking Status Start Date Stop Date Source Unknown if ever smoked [facility] Medications Ordered Filled Start Stop Current Ordering Indication Dosage Frequency Signature Comments Components Source Medication Medication Date Date Medication? Clinician (SIG) Name Name penicillin 2021- No [id number] 2.410 U nivers g 10-0223 ity of benzathine 14:00: 13:59 [place] (BICILLIN 00 :00 Medical L-A) Branch injection 2.4 Million Units penicillin 2021- No [id number] 2.410 2.4 U nivers g 10-02-23 Million [...] of therapy: 72 hours penicillin 2021- No [id number] 2.410 U nivers g 10-02 ity of benzathine 14:00: 13:59 [place] (BICILLIN 00 :00 Medical L-A) Branch injection 2.4 Million Units penicillin 2021- No [id number] 2.410 2.4 U nivers g 10-02 Million ity of benzathine 14:00: 13:59 Units, [...] of therapy: 72 hours penicillin 2021- No [id number] 2.410 U nivers g 10-02-15 ity of benzathine 14:00: 14:08 [place] (BICILLIN 00 :00 Medical L-A) Branch injection 2.4 Million Units penicillin 2021- No [id number] 2.410 2.4 U nivers g 10-02 Million ity of benzathine 14:00: 14:08 Units, [...]
Dur ation of therapy: 72 hours metroNIDAZO 2021- No [id number] 2000mg Take 4 Univers LE 500 mg 10-01 tablets by ity of tablet 00:00: 04:59 [place] now for 1 Medical dose. [place] Vital Signs Vital Name Observation Time Observation Value Comments Source Systolic blood 2021-10-15 13:49:00 131 mm[Hg] Univer sity [facility] Diastolic blood 2021-10-15 13:49:00 91 mm[Hg] Unive [facility] Heart rate 2021-10-15 13:46:00 61 /min [facility] Body temperature 2021-10-15 13:46:00 36.72 Cathy [facility] Respiratory rate 2021-10-15 13:46:00 18 /min [facility] Body height 2021-10-15 13:46:00 175.3 cm [facility] Body weight 2021-10-15 13:46:00 70.126 kg [facility] BMI 2021-10-15 13:46:00 22.83 kg/m2 [facility] Systolic blood 2021-10-08 14:49:00 130 mm[Hg] Univer sity [facility] Diastolic blood 2021-10-08 14:49:00 73 mm[facility]Hg[facility] 2021-10-08 14:49:00 67 /min Universi ty of [facility] Body temperature 2021-10-08 14:49:00 36.11 Cathy Univ ersity of [facility] Respiratory rate 2021-10-08 14:49:00 16 /min Univ ersity of [facility] Body height 2021-10-08 14:49:00 175.3 cm Universi ty of [facility] Body weight 2021-10-08 14:49:00 71.124 kg Universi ty of [facility] BMI 2021-10-08 14:49:00 23.16 kg/m2 Universi ty of [facility] Systolic blood 2021-10-01 16:18:00 140 mm[Hg] Univer sity of pressure [facility] Diastolic blood 2021-10-01 16:18:00 100 mm[Hg] Unive rsity of [facility] Heart rate 2021-10-01 15:42:00 84 /min Universi ty of [facility] Body temperature 2021-10-01 15:42:00 36.44 Cathy [facility] ersity of [facility] Respiratory rate 2021-10-01 15:42:00 18 /min Univ ersity of [facility] Body height 2021-10-01 15:42:00 175.3 cm Universi ty of [facility] Body weight 2021-10-01 15:42:00 70.478 kg Universi ty of [facility] BMI 2021-10-01 15:42:00 22.94 kg/m2 Universi ty of [facility] Height 2019-08-04 22:01:00 172.72 CM Weight 2019-08-04 22:01:00 68.03 KG Height 2019-08-01 21:18:00 172.72 CM Weight 2019-08-01 21:18:00 68.03 KG Procedures This patient has no known procedures. Encounters Start End Encounter Admission Attending Care Care Encounter Source Date/Time Date/Time Type Type Clinicians Facility Department ID 2022-01-21 2022-01-21 Outpatient Kaila BRITT [facility] [id number] [facility] 08:15:00 08:15:00 SHIRA house [facility] 2022-01-14 2022-01-14 Outpatient Kaila BRITT [facility] [id number] Univers 08:30:00 08:30:00 SHIRA wang o lacy [facility] 2021-10-15 2021-10-15 [facility] [id number] Univers 09:00:00 09:15:00 Visit Shira Britt COLOR ROOM ATTENDANT [id number] ity of REGIONAL [id number] [place] as MATERNAL [id number] [facility] & CHILD [address] [place] [address] 2021-10-15 2021-10-15 Outpatient R HANSEL, [facility] [id number] Univers 09:00:00 09:00:00 SHIRA wang o lacy [facility] 2021-10-08 2021-10-08 [facility] [id number] [facility] 09:00:00 09:15:00 Visit Shira Britt COLOR ROOM ATTENDANT [id number] ity of [facility] [id number] Geovanni as MATERNAL [id number] [facility] & CHILD [address] [place] [address] 2021-10-08 2021-10-08 Outpatient R [facility] [id number] Univers 09:00:00 09:00:00 ity of [facility] 2021-10-08 2021-10-08 [facility] [id number] Univers 09:00:00 09:00:00 SHIRA kathleen o [facility] 2021-10-01 2021-10-01 [facility] [id number] Univers 09:45:00 11:23:00 SHIRA kathleen o [facility] 2021-10-01 2021-10-01 [facility] [id number] Univers 09:45:00 11:23:00 Visit Shria Saenz COLOR ROOM ATTENDANT [id number] ity of [facility] [id number] [place] as MATERNAL [id number] [facility] & CHILD [address] [place] [address] 2021-10-01 2021-10-01 Mauricio URBINA [id number] Univers 00:00:00 00:00:00 Only Unassigned, CARMELA [id number] ity of [place] [facility] [id number] [place] as [id number] [place] [address] Branch 2019-08-04 2019-08-04 Emergency E [facility] [id number] [place] 22:01:00 23:42:00 [facility] 2019-08-01 2019-08-01 [facility] [id number] [place] 21:00:00 21:43:00 [facility] 2018-10-23 2018-10-23 Emergency E DAYA ANTON [facility] [id number] [place] 14:39:00 15:28:00 [facility] Results Test Description Test Time Test Comments Results Result [facility] e Comments CT HEAD W/O 2018-10-23 CT brain without CONTRAST 15:22:04 contrast.Location code: [id number] HISTORY: Left Facial Palsy COMPARISON: None.TECHNIQUE: Routine [...] hydrocephalus, midline shift, or space occupying mass. Coot-whitematter differentiation is well preserved with no definite CT evidence of anacute infarct. Posterior fossa and CP angles are normal.The cranial vault and skull base are intact. The paranasal sinuses and mastoidair cells are pneumatized and well aerated. IMPRESSION: No acute intracranial abnormality.
[2022-07-25 11:04] LABS: SARS-CoV-2 Antigen Rapid Res Negative (Negative)
--- NOTE | 2022-07-25 11:20 | EDPHYS ---
Physician Documentation [facility] Name: Romeo Lam Age: 32 yrs Sex: Male : 1990 Arrival Date: 07/25/2022 Time: 10:39 Bed IW1 Private MD: ED Physician Kye Arrington HPI: 07/25 10:55 This 32 yrs old Black Male presents to ER via Ambulatory with complaints of Need Covid snw Test. 10:55 Pt needs negative CoVid test to return to work. The patient has not recently seen a snw physician. Historical: - Allergies: 10:46 No Known Allergies; ss - Home Meds: 10:46 None [Active]; ss - PMHx: 10:46 None; ss - PSHx: 10:46 None; ss - Immunization history:: Client reports receiving the 2nd dose of the Covid vaccine. - Social history:: Smoking status: Patient reports the use of cigarette tobacco products, denies chronic smoking, but will smoke occasionally. ROS: 11:23 Constitutional: Negative for fever, chills, and weight loss, Eyes: Negative for injury, snw pain, redness, and discharge, ENT: Negative for injury, pain, and discharge, Neck: Negative for injury, pain, and swelling, Cardiovascular: Negative for chest pain, palpitations, and edema, Respiratory: Negative for shortness of breath, cough, wheezing, and pleuritic chest pain, Abdomen/GI: Negative for abdominal pain, nausea, vomiting, diarrhea, and constipation, Back: Negative for injury and pain, : Negative for injury, bleeding, discharge, and swelling, MS/Extremity: Negative for injury and deformity, Skin: Negative for injury, rash, and discoloration, Neuro: Negative for headache, weakness, numbness, tingling, and seizure. Exam: 11:23 Constitutional: This is a well developed, well nourished patient who is awake, alert, snw and in no acute distress. Head/Face: Normocephalic, atraumatic. Chest/axilla: Normal chest wall appearance and motion. Nontender with no deformity. No lesions are appreciated. Cardiovascular: Regular rate and rhythm with a normal S1 and S2. No gallops, murmurs, or rubs. Normal PMI, no JVD. No pulse deficits. Respiratory: Lungs have equal breath sounds bilaterally, clear to auscultation and percussion. No rales, rhonchi or wheezes noted. No increased work of breathing, no retractions or nasal flaring. Abdomen/GI: Soft, non-tender, with normal bowel sounds. No distension or tympany. No guarding or rebound. No evidence of tenderness throughout. Back: No spinal tenderness. No costovertebral tenderness. Full range of motion. Skin: Warm, dry with normal turgor. Normal color with no rashes, no lesions, and no evidence of cellulitis. MS/ Extremity: Pulses equal, no cyanosis. Neurovascular intact. Full, normal range of motion. Neuro: Awake and alert, GCS 15, oriented to person, place, time, and situation. Cranial nerves II-XII grossly intact. Motor strength 5/5 in all extremities. Sensory grossly intact. Cerebellar exam normal. Normal gait. Psych: Awake, alert, with orientation to person, place and time. Behavior, mood, and affect are within normal limits. Vital Signs: 10:43 BP 146 / 103; Pulse 71; Resp 17; Temp 98.2(TE); Pulse Ox 100% on R/A; Weight 70.31 kg; ss Height 5 ft. 8 in. (172.72 cm); Pain 0/10; 11:17 BP 135 / 96; ss 10:43 Body Mass Index 23.57 (70.31 kg, 172.72 cm) ss MDM: 10:54 Patient medically screened. snw 11:22 Differential Diagnosis flu, Covid negative, work release. Data reviewed: vital signs, snw nurses notes, lab test result(s). Counseling: I had a detailed discussion with the patient and/or guardian regarding: the historical points, exam findings, and any diagnostic results supporting the discharge/admit diagnosis, the presence of at least one elevated blood pressure reading (>120/80) during this emergency department visit, the need for outpatient follow up, for definitive care, to return to the emergency department if symptoms worsen or persist or if there are any questions or concerns that arise at home. Special discussion: I have referred the patient to see his PCP for further evaluation of high blood pressure. Based on the history and exam findings, there is no indication for further emergent testing or inpatient evaluation. I discussed with the patient/guardian the need to see the primary care provider for further evaluation of the symptoms. 07/25 10:49 Order name: MACKENZIE RUBIO; Complete Time: 11:06 ss Administered Medications: No medications were administered Disposition: 19:16 Co-signature as Attending Physician, Kye Arrington DO I reviewed the patient's care ms3 provided by the Advanced Practice Provider and agree with the diagnosis and treatment plan. Disposition Summary: 07/25/22 11:20 Discharge Ordered Location: Home snw Condition: Stable snw Diagnosis - Covid negative snw Followup: snw - With: Emergency Department - When: As needed - Reason: Worsening of condition Followup: snw - With: Private Physician - When: 1 week - Reason: Recheck today's complaints, Continuance of care, Re-evaluation by your physician Discharge Instructions: - Discharge Summary Sheet snw - Hypertension, Adult snw - COVID-19: What Your Test Results Mean - [facility] snw - COVID-19 Frequently Asked Questions snw - 10 Things You Can Do to Manage Your COVID-19 Symptoms at Home - [facility] snw - Form - Blood Pressure Record Sheet snw - COVID-19: Quarantine vs. Isolation - [facility] snw Forms: - Medication Reconciliation Form snw - Thank You Letter snw - Antibiotic Education snw - Prescription Opioid Use snw - Work release form snw Signatures: Dispatcher [employer] Carolann Miller FNP-C RUFFLER-Csnw Suri Nielsen, CELINA RN Kye Berry DO DO ms3
--- NOTE | 2022-07-25 11:20 | ER ---
Nurse's Notes [facility] Name: Romeo Lam Age: 32 yrs Sex: Male : 1990 Arrival Date: 07/25/2022 Time: 10:39 Bed IW1 Private MD: Diagnosis: Covid negative Presentation: 07/25 10:43 Chief complaint: Patient states: Requesting covid test to go back to work. Pt reports ss he had covid starting July 10 and has had 3 positive covid test since then. Coronavirus screen: Client denies travel out of the [place] in the last 14 days. Ebola Screen: Patient denies exposure to infectious person. Patient denies travel to an Ebola-affected area in the 21 days before illness onset. Initial Sepsis Screen: Does the patient meet any 2 criteria? No. Patient's initial sepsis screen is negative. Does the patient have a suspected source of infection? No. Patient's initial sepsis screen is negative. Risk Assessment: Do you want to hurt yourself or someone else? Patient reports no desire to harm self or others. Onset of symptoms was July 10, 2022. 10:43 Method Of Arrival: Ambulatory ss 10:43 Acuity: JOSE 4 ss Historical: - Allergies: 10:46 No Known Allergies; ss - Home Meds: 10:46 None [Active]; ss - PMHx: 10:46 None; ss - PSHx: 10:46 None; ss - Immunization history:: Client reports receiving the 2nd dose of the Covid vaccine. - Social history:: Smoking status: Patient reports the use of cigarette tobacco products, denies chronic smoking, but will smoke occasionally. Screenin:[address] [facility] ED Fall Risk Assessment (Adult) History of falling in the last 3 months, ss including since admission No falls in past 3 months (0 pts). Abuse screen: Denies threats or abuse. Denies injuries from another. Nutritional screening: No deficits noted. Tuberculosis screening: Never had TB. Assessment: 11:19 Reassessment: Pt has no complaints at this time, is just hoping for a negative covid ss test so he can go back to work. General: Appears in no apparent distress. comfortable, Behavior is calm, cooperative, Denies fever, feeling ill, fatigue, chills. Pain: Denies pain. Neuro: Level of Consciousness is awake, alert, obeys commands, Oriented to person, place, time, situation, Speech is normal. Respiratory: Airway is patent Respiratory effort is even, unlabored, Respiratory pattern is regular, symmetrical. Derm: Skin is intact, is healthy with good turgor, Skin is dry, Skin is pink, warm \T\ dry. normal. Musculoskeletal: Circulation, motion, and sensation intact. Range of motion: intact in all extremities, Swelling absent. Vital Signs: 10:43 BP 146 / 103; Pulse 71; Resp 17; Temp 98.2(TE); Pulse Ox 100% on R/A; Weight 70.31 kg; ss Height 5 ft. 8 in. (172.72 cm); Pain 0/10; 11:17 BP 135 / 96; ss 10:43 Body Mass Index 23.57 (70.31 kg, 172.72 cm) ED Course: 10:39 Patient arrived in ED. rg4 10:39 Carolann Contreras [facility]NP-C [facility] snw 10:39 Kye Arrington DO is Attending Physician. snw 10:46 Triage completed. ss 10:46 Arm band placed on right wrist. ss 11:19 Patient has correct armband on for positive identification. ss 11:19 No provider procedures requiring assistance completed. Patient did not have IV access ss during this emergency room visit. 11:23 Suri Nielsen, CELINA is Primary Nurse. ss Administered Medications: No medications were administered Medication: 11:19 VIS not applicable for this client. ss Outcome: 11:19 Discharged to home ambulatory. ss 11:19 Condition: good 11:19 Discharge instructions given to patient, Instructed on discharge instructions, follow up and referral plans. Demonstrated understanding of instructions, follow-up care. 11:20 Discharge ordered by . snw 11:24 Patient left the ED. ss Signatures: Carolann Contreras FNP-C RESPIRATORY CARE TECHNICIAN-Csnw Suri Nielsen RN RN Wandy Solomon rg4
[2022-07-25 11:57] VITALS: TEMP 98.2; O2SAT 100
[2022-07-25 11:58] VITALS: BP 135/96
== END 2022-07-25 11:24 | disposition home or self-care (01) ==
LOC: ER 10:35
DX: Z20.822 Contact with and (suspected) exposure to COVID-19 (principal)
CPT/HCPCS: 36415; 87811; 99281

== ENCOUNTER 2023-02-23 08:52 | Emergency (ER) | payer SELFPAY ==
--- OUTSIDE RECORDS SUMMARY | 2023-02-23 08:55 | XMS REPORT | Continuity of Care Document ---
:[address] [facility] t Address [address] [place] [address] [place] [address] Care Team Providers Name Role Phone SHIRA BRITT Primary Care Physician Unavailable SHIRA BRITT Attending Clinician Un[facility] Unavailable Hansel Shira MORRISON Attending Clinician [phone] Doctor Unassigned, [place] Attending Clinician Unavailable DR BHARATI MICHAELS Attending Clinician Unavailable DR DAYA ANTON Attending Clinician Unavailable DR BHARATI MICHAELS Admitting Clinician Unavailable DR DAYA ANTON Admitting Clinician Unavailable Payers Payer Name Policy Type Policy Number Effective Date Expiration Date Dimas acharya [employer] [id number] 2021 TATYANA 0-100% 00:00:00 Problems Condition Condition Condition Status Onset Resolution Last Treating Co mments Source Name Details Category Date Date Treatment Clinician Date No known No known Disease Unive rs active active ity of problems problems [facility] Allergies, Adverse Reactions, Alerts Allergy Allergy Status Severity Reaction(s) Onset Inactive Treating Comm ents Source Name Type Date Date Clinician NO KNOWN Drug Active Univers ALLERGIE Class ity of S [facility] No Known DA Active [facility] Social History Social Habit Start Date Stop Date Quantity Comments Source Exposure to Not sure [facility] SARS-CoV-2 (event) Medica l Branch Sex Assigned At [birth year] [facility] 00:00:00 00:00:00 Medical [place] Smoking Status Start Date Stop Date Source Unknown if ever smoked [facility] [place] [facility] Medications Ordered Filled Start Stop Current Ordering Indication Dosage Frequency Signature Comments Components Source Medication Medication Date Date Medication? Clinician (SIG) Name Name penicillin 2021- No [id number] 2.410 U nivers g 10-0223 ity of benzathine 14:00: 13:59 [place] (BICILLIN 00 :00 Medical L-A) Branch injection 2.4 Million Units penicillin 2021- No [id number] 2.410 2.4 U nivers g 10-02-23 Million [...] of therapy: 72 hours penicillin 2021- No [id number] 2.410 U nivers g 10-0223 ity of benzathine 14:00: 13:59 [place] (BICILLIN 00 :00 Medical L-[facility]) Branch injection 2.4 Million Units penicillin 2021- No [id number] 2.410 2.4 U nivers g 10-0223 Million ity of benzathine 14:00: 13:59 Units, [...] of therapy: 72 hours penicillin 2021- No [id number] 2.410 U nivers g 10-02-15 ity of benzathine 14:00: 14:08 [place] (BICILLIN 00 :00 Medical L-A) Branch injection 2.4 Million Units penicillin 2021- No [id number] 2.410 2.4 U nivers g 10-02 Million [...] of therapy: 72 hours metroNIDAZO 2021- No [id number] 2000mg Take 4 Univers LE 500 mg 10-01 tablets by ity of tablet 00:00: 04:59 [place] for 1 Medical dose. [place] Vital Signs Vital Name Observation Time Observation Value Comments Source Systolic blood 2021-10-15 13:49:00 131 mm[Hg] Univer sity [facility] Diastolic blood 2021-10-15 13:49:00 91 mm[facility]Hg[facility] 2021-10-15 13:46:00 61 /min [facility] Body temperature 2021-10-15 13:46:00 36.72 Cathy [facility] Respiratory rate 2021-10-15 13:46:00 18 /min [facility] Body height 2021-10-15 13:46:00 175.3 cm [facility] Body weight 2021-10-15 13:46:00 70.126 kg [facility] BMI 2021-10-15 13:46:00 22.83 kg/m2 [facility] Systolic blood 2021-10-08 14:49:00 130 mm[Hg] Univer sity [facility] Diastolic blood 2021-10-08 14:49:00 73 mm[Hg] Unive rsity [facility] Heart rate 2021-10-08 14:49:00 67 /min Universi ty of [facility] Body temperature 2021-10-08 14:49:00 36.11 Cathy Univ ersity of [facility] Respiratory rate 2021-10-08 14:49:00 16 /min Univ ersity of [facility] Body height 2021-10-08 14:49:00 175.3 cm Universi ty of [facility] Body weight 2021-10-08 14:49:00 71.124 kg Universi ty of [facility] BMI 2021-10-08 14:49:00 23.16 kg/m2 Universi ty of [facility] Systolic blood 2021-10-01 16:18:00 140 mm[Hg] Univer sity of pressure [facility] Diastolic blood 2021-10-01 16:18:00 100 mm[Hg] Unive rsity of pressure [facility] Heart rate 2021-10-01 15:42:00 84 /min Universi ty of [facility] Body temperature 2021-10-01 15:42:00 36.44 Cathy [facility] ersity of [facility] Respiratory rate 2021-10-01 15:42:00 18 /min Univ ersity of [facility] Body height 2021-10-01 15:42:00 175.3 cm Universi ty of [facility] Body weight 2021-10-01 15:42:00 70.478 kg Universi ty of [facility] BMI 2021-10-01 15:42:00 22.94 kg/m2 Universi ty of [facility] Height 2019-08-04 22:01:00 172.72 CM Weight 2019-08-04 22:01:00 68.03 KG Height 2019-08-01 21:18:00 172.72 CM Weight 2019-08-01 21:18:00 68.03 KG Procedures This patient has no known procedures. Encounters Start End Encounter Admission Attending Care Care Encounter Source Date/Time Date/Time Type Type Clinicians Facility Department ID 2022-01-21 2022-01-21 Outpatient Kaila BRITT [facility] [id number] [facility] 08:15:00 08:15:00 SHIRA house [facility] 2022-01-14 2022-01-14 Outpatient R HANSEL, [facility] [id number] Univers 08:30:00 08:30:00 SHIRA wang o f [facility] 2021-10-15 2021-10-15 [facility] [id number] Univers 09:00:00 09:15:00 Visit Shira Britt ENVIRONMENTAL ANALYST [id number]. 10 ity of [facility] [id number] [place] as MATERNAL [id number] [facility] ical & CHILD [address] [place] [address] 2021-10-15 2021-10-15 Outpatient R HANSEL, [facility] [id number] Univers 09:00:00 09:00:00 SHIRA wang o f [facility] 2021-10-08 2021-10-08 [facility] [id number] [facility] 09:00:00 09:15:00 Visit Shira Britt ENVIRONMENTAL ANALYST [id number]. 10 ity of [facility] [id number] [place] as MATERNAL [id number] [facility] & CHILD [address] [place] [address] 2021-10-08 2021-10-08 Outpatient R [facility] [id number] Univers 09:00:00 09:00:00 ity of [facility] 2021-10-08 2021-10-08 [id number] Univers 09:00:00 09:00:00 SHIRA wang o [facility] 2021-10-01 2021-10-01 Outpatient R HANSEL, [facility] [id number] Univers 09:45:00 11:23:00 SHIRA wang o [facility] 2021-10-01 2021-10-01 [facility] [id number] Univers 09:45:00 11:23:00 Visit Shira Saenz ENVIRONMENTAL ANALYST [id number] ity of [facility] [id number] [place] as MATERNAL [id number] [facility] ical & CHILD [address] [place] [address] 2021-10-01 2021-10-01 Orders Doctor CIARA [id number] Univers 00:00:00 00:00:00 Only Unassigned, CARMELA [id number] ity of [place] [facility] [id number] [place] as [id number] [facility] 009 Branch 2019-08-04 2019-08-04 [facility] [id number] [facility] 22:01:00 23:42:00 [facility] 2019-08-01 2019-08-01 [facility] [id number] [facility] 21:00:00 21:43:00 [facility] 2018-10-23 2018-10-23 Emergency E DAYA ANTON [facility] [id number] [facility] 14:39:00 15:28:00 [facility] Results Test Description Test Time Test Comments Results Result [facility] e Comments CT HEAD W/O 2018-10-23 CT brain without CONTRAST 15:22:04 contrast.Location code: [id number] HISTORY: Left Facial Palsy COMPARISON: None.TECHNIQUE: Routine [...]
--- NOTE | 2023-02-23 09:09 | ER ---
Nurse's Notes [facility] Name: Romeo Lam Age: 33 yrs Sex: Male : 1990 Arrival Date: 02/23/2023 Time: 08:52 Bed 18 Private MD: Diagnosis: Dehydration Presentation: 02/23 09:09 Risk Assessment: Do you want to hurt yourself or someone else? Patient reports no bp desire to harm self or others. Onset of symptoms was February 23, 2023. 09:09 Method Of Arrival: Ambulatory bp 09:09 Acuity: JOSE 5 bp 09:14 Chief complaint: Patient states: Had a little abdominal cramping this morning that has ll1 resolved. Needs a work release. Coronavirus screen: Vaccine status: Patient reports receiving the 2nd dose of the covid vaccine. Client denies travel out of the [place] in the last 14 days. At this time, the client does not indicate any symptoms associated with coronavirus-19. Ebola Screen: Patient denies exposure to infectious person. Patient denies travel to an Ebola-affected area in the 21 days before illness onset. Initial Sepsis Screen: Does the patient meet any 2 criteria? No. Patient's initial sepsis screen is negative. Does the patient have a suspected source of infection? No. Patient's initial sepsis screen is negative. Triage Assessment: 09:13 General: Appears in no apparent distress. Behavior is calm, cooperative, appropriate ll1 for age. Pain: Denies pain. EENT: Reports dry mouth. GI: Reports cramping, abdominal cramping has resolved. Historical: - Allergies: 09:09 No Known Allergies; bp - PMHx: 09:09 None; bp - PSHx: 09:09 None; bp - Immunization history:: Adult Immunizations up to date. - Social history:: Smoking status: Patient denies any tobacco usage or history of. Screenin:14 [facility] ED Fall Risk Assessment (Adult) Score/Fall Risk Level 0 - 2 = Low Risk ll1 Oriented to surroundings, Maintained a safe environment, Educated pt \T\ family on fall prevention, incl call for assistance when getting out of bed, Hourly rounding (assess needs \T\ fall precautionary measures) done. Abuse screen: Denies threats or abuse. Nutritional screening: No deficits noted. Tuberculosis screening: No symptoms or risk factors identified. Assessment: 09:15 Reassessment: No changes from previously documented assessment. Patient and/or family ll1 updated on plan of care and expected duration. Pain level reassessed. Patient is alert, oriented x 3, equal unlabored respirations, skin warm/dry/pink. Vital Signs: 09:10 BP 117 / 80; Pulse 78; Resp 15; Temp 97.8; Pulse Ox 95% on R/A; Weight 81.65 kg; Height ll1 5 ft. 8 in. ; Pain 0/10; 09:10 Body Mass Index 27.37 (81.65 kg, 172.72 cm) ll1 09:10 Pain Scale: Adult ll1 ED Course: 08:54 Patient arrived in ED. im 08:55 [facility] Burnette [facility] sb4 08:55 Omari Eric MD is Attending Physician. sb4 09:00 Arm band placed on Patient placed in an exam room, on a stretcher. bp 09:10 Triage completed. bp 09:14 No provider procedures requiring assistance completed. Patient did not have IV access ll1 during this emergency room visit. 09:15 Provided Education on: n/a. ll1 09:15 Patient has correct armband on for positive identification. Bed in low position. Call ll1 light in reach. Cardiac monitoring not applicable on this patient. 09:16 French Kent, RN is Primary Nurse. ll1 Administered Medications: No medications were administered Medication: 09:15 VIS not applicable for this client. ll1 Outcome: 09:09 Discharge ordered by . sb4 09:14 Discharged to home ambulatory. ll1 09:14 Condition: stable 09:14 Discharge instructions given to patient, Instructed on discharge instructions, follow up and referral plans. Demonstrated understanding of instructions, follow-up care. 09:16 Patient left the ED. ll1 Signatures: Silviano Hdez RN RN bp French Kent RN RN ll1 Zohreh Burnette PA-C PA-C sb4 Karley Mcdaniel im
--- NOTE | 2023-02-23 09:09 | EDPHYS ---
Physician Documentation [facility] Name: Romeo Lam Age: 33 yrs Sex: Male : 1990 Arrival Date: 02/23/2023 Time: 08:52 Bed 18 Private MD: ED Physician Omari Eric HPI: 02/23 09:31 This 33 yrs old Black Male presents to ER via Ambulatory with complaints of Flank Pain. sb4 09:31 The patient complains of pain in the left low back. The pain does not radiate. Onset: sb4 The symptoms/episode began/occurred this morning. Modifying factors: The symptoms are alleviated by nothing. the symptoms are aggravated by nothing. Associated signs and symptoms: The patient has no apparent associated signs or symptoms. Severity of pain: At its worst the pain was mild. The patient has not experienced similar symptoms in the past. patient states he had a cramp in his left side this morning and had a very dry mouth and thought he may be dehydrated. his work wanted him to be evaluated. Historical: - Allergies: 09:09 No Known Allergies; bp - PMHx: 09:09 None; bp - PSHx: 09:09 None; bp - Immunization history:: Adult Immunizations up to date. - Social history:: Smoking status: Patient denies any tobacco usage or history of. ROS: 09:31 Constitutional: Negative for fever, chills, and weight loss. sb4 09:31 ENT: Positive for dry mouth. 09:31 Back: Positive for flank pain, on the left. 09:31 All other systems are negative. Exam: 09:31 Constitutional: This is a well developed, well nourished patient who is awake, alert, sb4 and in no acute distress. Head/Face: Normocephalic, atraumatic. Eyes: Extra-ocular motions intact. Periorbital areas with no swelling, redness, or edema. 09:31 ENT: dry mucous membranes. 09:31 Back: pain, is absent, ROM is normal, painless, normal spinal alignment noted, CVA tenderness, is absent. Vital Signs: 09:10 BP 117 / 80; Pulse 78; Resp 15; Temp 97.8; Pulse Ox 95% on R/A; Weight 81.65 kg; Height ll1 5 ft. 8 in. ; Pain 0/10; 09:10 Body Mass Index 27.37 (81.65 kg, 172.72 cm) ll1 09:10 Pain Scale: Adult ll1 MDM: 08:55 Patient medically screened. sb4 09:31 Differential diagnosis: nephrolithiasis, pyelonephritis, UTI, muscle spasm. Data sb4 reviewed: vital signs, nurses notes, and as a result, I will discharge patient. Test considered but Not performed: Labs: offered to check electrolytes and administer IV fluids but patient declined. Counseling: I had a detailed discussion with the patient and/or guardian regarding the historical points, exam findings, and any diagnostic results supporting the discharge/admit diagnosis, to return to the emergency department if symptoms worsen or persist or if there are any questions or concerns that arise at home. ED course: patient did not want any treatment, just wanted to be cleared for work. he is well appearing, vitals stable. do not think any workup is necessary at this time. return precautions given. Administered Medications: No medications were administered Disposition: 10:57 Co-signature as Attending Physician, Omari Eric MD I reviewed the patient's care rt provided by the Advanced Practice Provider and agree with the diagnosis and treatment plan. Disposition Summary: 02/23/23 09:09 Discharge Ordered Location: Home sb4 Problem: new sb4 Symptoms: are resolved sb4 Condition: Stable sb4 Diagnosis - Dehydration sb4 Followup: sb4 - With: Emergency Department - When: As needed - Reason: Trouble breathing, Worsening of condition Discharge Instructions: - Discharge Summary Sheet sb4 - Dehydration, Adult sb4 Forms: - Work release form sb4 - Medication Reconciliation Form sb4 - Thank You Letter sb4 - Antibiotic Education sb4 - Prescription Opioid Use sb4 - Patient Portal Instructions sb4 - Leadership Thank You Letter sb4 Signatures: Silviano Hdez, RN RN Zohreh Richter PAEusebioC PA-C sb4 Omari Eric MD MD rt
[2023-02-23 09:20] VITALS: BP 117/80; TEMP 97.8; O2SAT 95
== END 2023-02-23 09:16 | disposition home or self-care (01) ==
LOC: ER 08:52
DX: E86.0 Dehydration (principal)
CPT/HCPCS: 99282